=== PATIENT | male | born 2000 | race Caucasian/White ===

== ENCOUNTER 2021-11-04 17:59 | Emergency (ER) | payer OTHER ==
[~2021-11-04] VITALS: Ht 175.3 cm; Wt 73.6 kg
[2021-11-04] MEDS ORDERED: ACE65ERTAB PO (18:06)
[2021-11-04] MEDS ORDERED: AUGM875T28 PO (19:35)
[2021-11-04] MEDS ORDERED: AUGMENTIN 875 MG TAB PO ONE (19:35)
[2021-11-04 20:15] VITALS: BP 136/66
[2021-11-05] MEDS ORDERED: IBUP200T46 PO (09:33)
[2021-11-05] MEDS ORDERED: PRED20TA PO (14:28)
== END 2021-11-04 20:17 | disposition home or self-care (01) ==
LOC: M ED 17:59
DX: K02.9 Dental caries, unspecified (principal); K08.89 Other specified disorders of teeth and supporting structures

== ENCOUNTER 2021-11-05 09:18 | Emergency (ER) | payer OTHER ==
[~2021-11-05] VITALS: Ht 175.3 cm; Wt 72.7 kg
[~2021-11-05 09:18] MED LIST: ACE65ERTAB PO; AUGM875T28 PO
[2021-11-05] MEDS ORDERED: IBUP200T46 PO (09:33)
[2021-11-05] MEDS ORDERED: AMPICILLIN SOD/SULBACTAM SOD 3 GM in D5W MINI-BAG PLUS 100 ML IV ONE (12:00)
[2021-11-05] MEDS ORDERED: dexameTHASONE 20MG/5ML VIAL (J1100 PER 1MG) IV ONE (12:00)
[2021-11-05 12:33] LABS: BASO % 0.2 % (0.0-1.0); HEMATOCRIT 44.4 % (42.0-52.0); HEMOGLOBIN 15.1 g/dl (13.5-17.5); LYMPH # 0.8 10^3/uL (1.5-5.0); LYMPH % 6.3 % (24.0-44.0); MEAN CORPUSCULAR HEMOGLOBIN 29.5 pg (27.0-33.0); MEAN CORPUSCULAR VOLUME 86.9 fl (80.0-96.0); MONO # 1.3 10^3/uL (0.0-0.8); MONO % 9.6 % (2.0-8.0); NEUTROPHILS # 11.2 10^3/uL (1.5-8.5); NEUTROPHILS % 83.5 % (36.0-66.0); PLATELET COUNT, AUTOMATED 233 10^3/uL (150-450); RED BLOOD COUNT 5.11 10^6/uL (4.30-6.10); WHITE BLOOD COUNT 13.4 10^3/uL (4.0-10.0)
[2021-11-05 12:50] LABS: ERYTHROCYTE SEDIMENTATION RATE 10 mm/hr (0-15)
[2021-11-05 14:15] LABS: ALBUMIN 3.9 GM/DL (3.2-5.2); ALT/SGPT 26 U/L (12-78); BILIRUBIN,DIRECT 0.3 MG/DL (0.0-0.2); BILIRUBIN,TOTAL 1.2 MG/DL (0.2-1.0); BLOOD UREA NITROGEN 10 MG/DL (7-18); C REACTIVE PROTEIN QUANTITATIV 8.62 MG/DL (0.00-0.30); CALCIUM LEVEL 9.3 MG/DL (8.5-10.1); CARBON DIOXIDE LEVEL 26 MEQ/L (21-32); CHLORIDE LEVEL 103 MEQ/L (98-107); CREATININE FOR GFR 1.16 MG/DL (0.70-1.30); GLOMERULAR FILTRATION RATE > 60.0 (>60); GLUCOSE, FASTING 106 MG/DL (70-100); POTASSIUM SERUM 4.1 MEQ/L (3.5-5.1); SODIUM LEVEL 136 MEQ/L (136-145); TOTAL PROTEIN 7.4 GM/DL (6.4-8.2)
[2021-11-05] MEDS ORDERED: PRED20TA PO (14:28)
[2021-11-05 14:37] VITALS: BP 127/76
== END 2021-11-05 14:42 | disposition home or self-care (01) ==
LOC: M ED 09:18
DX: L03.211 Cellulitis of face (principal); K02.9 Dental caries, unspecified
CPT/HCPCS: 80048; 80076; 85025; 85652; 86140; 96365; 96366; 96375; 99283; J1100